=== PATIENT | female | born 1950 | race Caucasian/White ===

== ENCOUNTER 2017-01-13 13:21 | Outpatient (CLI) | payer OTHER ==
[2014-08-20 09:26] VITALS: BP 105/60
[2017-01-13 13:41] LABS: BASOPHILS % 0.5 (0.0-1.5); EOSINOPHILS % 2.1 % (0.0-6.8); MEAN CORPUSCULAR HEMOGLOBIN 30.1 pg (28.0-34.0); MEAN CORPUSCULAR VOLUME 85.8 fl (80.0-100.0); MONOCYTES % 6.6 % (0.0-11.0); NEUTROPHILS # 4.1 # k/uL (1.4-7.7)
[2017-01-13 14:07] LABS: eGFR (African) > 60; eGFR (Non-African) > 60
== END 2017-01-13 13:22 ==
LOC: LAB 13:21
PROVIDERS: ATTEND Nurse Practitioner Family
DX: Z51.81 Encounter for therapeutic drug level monitoring (principal); Z79.899 Other long term (current) drug therapy
CPT/HCPCS: 36415; 80053; 82306; 85025

== ENCOUNTER 2017-03-22 14:30 | Outpatient (CLI) | payer OTHER ==
[2014-08-20 09:26] VITALS: BP 105/60
[2017-03-22 16:15] LABS: eGFR (African) > 60; eGFR (Non-African) > 60
== END 2017-03-22 14:50 ==
LOC: LAB 14:30
PROVIDERS: ATTEND Internal Medicine
DX: M86.8X9 Other osteomyelitis, unspecified sites (principal)
CPT/HCPCS: 36415; 80048

== ENCOUNTER 2017-03-23 14:10 | Outpatient (CLI) | payer OTHER ==
[2014-08-20 09:26] VITALS: BP 105/60
[~2017-03-23 14:10] MED LIST: DENOSUMAB 60 MG/ML ML SQ ONE
[2017-03-24] MEDS ORDERED: DENOSUMAB 60 MG/ML ML SQ SCH (08:00)
== END 2017-03-23 14:15 | disposition home or self-care (01) ==
LOC: INF 14:10
PROVIDERS: ATTEND Internal Medicine
DX: M81.0 Age-related osteoporosis without current pathological fracture (principal)
CPT/HCPCS: 96372; J0897

== ENCOUNTER 2017-04-20 12:23 | Outpatient (CLI) | payer OTHER ==
[2014-08-20 09:26] VITALS: BP 105/60
--- NOTE | 2017-04-20 14:58 | Diagnostic Imaging Report ---
AUSTYN RICH [facility] [id number] [facility].[address] [address] Report Submission Date: Apr 20, 2017 1:48:52 PM CDT Patient Study Name: MARTIN MCCRACKEN Date: Apr 20, 2017 12:39:13 PM CDT Modality Type: US Gender: F Description: DPLX SCN XTRCRAN ART CMP OSIEL : 54 Institution: [facility] Physician: AUSTYN RICH Examination: Carotid artery ultrasound History: Bruit Comparison exams: None available Findings: Right carotid: Common carotid artery peak systolic velocity 8.9 cm/s; end diastolic velocity 20.6 cm/s. Internal carotid artery peak systolic velocity 82.3 cm/s; end diastolic velocity 30.8 cm/s. External carotid artery velocity to 82.2 cm/s. Vertebral artery velocity 44.6 cm/s Vertebral flow antegrade. Normal waveforms. No occlusive plaquing. Left carotid: Common carotid artery peak systolic velocity 72.1 cm/s; end diastolic velocity 22.3 cm/s. Internal carotid artery peak systolic velocity 83.3 cm/s; end diastolic velocity 29.3 cm/s. External carotid artery velocity to 79.2 cm/s. Vertebral artery velocity 42.6 cm/s Vertebral flow antegrade. Normal waveforms. No occlusive plaquing. Right ICA/CCA Ratio: 1.0 Left ICA/CCA Ratio 12 Impression: Carotids ratios not elevated. No restriction to hemodynamic flow. Electronically signed on Apr 20, 2017 1:48:52 PM CDT by: Torrey BALDERRAMA
== END 2017-04-20 12:24 ==
LOC: RAD 12:23
PROVIDERS: ATTEND Nurse Practitioner Family
DX: R09.89 Other specified symptoms and signs involving the circulatory and respiratory systems (principal); R01.1 Cardiac murmur, unspecified
CPT/HCPCS: 93880

== ENCOUNTER 2017-04-20 14:19 | Outpatient (CLI) | payer OTHER ==
[2014-08-20 09:26] VITALS: BP 105/60
== END 2017-04-20 14:20 ==
LOC: CARD 14:19
PROVIDERS: ATTEND Internal Medicine Cardiovascular Disease
DX: R01.1 Cardiac murmur, unspecified (principal)
CPT/HCPCS: G0463

== ENCOUNTER 2017-10-15 11:41 | Outpatient (CLI) | payer OTHER ==
[2014-08-20 09:26] VITALS: BP 105/60
--- NOTE | 2017-10-19 12:00 | OP Clinic Progress Note ---
REASON FOR VISIT: Johanny Vanegsa returns for follow up of osteoporosis. She is doing well. She has no complaints. She has had no falls. No new back pain. PAST MEDICAL HISTORY: 1. Hyperlipidemia. 2. Depression. 3. Reflux. 4. Hypertension. 5. Osteoporosis. PRESENT MEDICATIONS: Present medications were reviewed and she receives Prolia 60 mg every 6 months. REVIEW OF SYSTEMS: She has had no difficulties. She will have labs in a couple of days. She just saw her primary physician, Dr. Ramirez, and is up to date on all needs. PHYSICAL EXAMINATION: GENERAL: She looks well. VITAL SIGNS: Height: 5 feet 3 inches. Weight: 103 pounds. No pain. T: 97.4, R: 20, heart rate 77, BP: 130/70. HEENT: Unremarkable. LUNGS: Clear. No crackles or wheezing. HEART: Regular rhythm. ABDOMEN: Soft. VASCULAR: No edema or cyanosis. SPINAL EXAM: Mild kyphosis of the thoracic spine. No spinal or paraspinal tenderness. IMPRESSION: Osteoporosis. PLAN: Await her labs. Proceed with Prolia 60 mg subcutaneous, and I will see her back in 6 months. Thank you very much. cc: Dr. Mary BALDERRAMA
== END 2017-10-15 11:42 ==
LOC: RHEU 11:41
PROVIDERS: ATTEND Internal Medicine
DX: M81.0 Age-related osteoporosis without current pathological fracture (principal)
CPT/HCPCS: 99214; G0463

== ENCOUNTER 2017-10-19 13:44 | Outpatient (CLI) | payer OTHER ==
[2014-08-20 09:26] VITALS: BP 105/60
[2017-10-19] MEDS ORDERED: DENOSUMAB 60 MG/ML ML SQ ONE (14:00)
[2017-10-19] MEDS ORDERED: DENOSUMAB 60 MG/ML ML SQ SCH (15:00)
== END 2017-10-19 13:45 ==
LOC: INF 13:44
PROVIDERS: ATTEND Internal Medicine
DX: M81.0 Age-related osteoporosis without current pathological fracture (principal)
CPT/HCPCS: 96372; J0897

== ENCOUNTER → 2017-10-29 | Outpatient (CLI) | payer OTHER ==
[2014-08-20 09:26] VITALS: BP 105/60
[2017-10-29 09:45] LABS: BASOPHILS % 0.3 (0.0-1.5); EOSINOPHILS % 1.6 % (0.0-6.8); MEAN CORPUSCULAR HEMOGLOBIN 31.6 pg (28.0-34.0); MEAN CORPUSCULAR VOLUME 91.6 fl (80.0-100.0); MONOCYTES % 5.2 % (0.0-11.0); NEUTROPHILS # 8.9 # k/uL (1.4-7.7)
[2017-10-29 10:06] LABS: eGFR (African) > 60; eGFR (Non-African) > 60
== END ==
LOC: LAB 09:13
PROVIDERS: ATTEND Nurse Practitioner Psychiatric/Mental Health
DX: Z51.81 Encounter for therapeutic drug level monitoring (principal); Z79.899 Other long term (current) drug therapy
CPT/HCPCS: 36415; 80053; 82306; 85025

== ENCOUNTER 2018-03-18 14:06 | Outpatient (CLI) | payer OTHER ==
[2014-08-20 09:26] VITALS: BP 105/60
--- NOTE | 2018-03-24 09:07 | OP Clinic Progress Note ---
REASON FOR VISIT: Johanny Vanegas returns for follow up of osteoporosis. She has had a good 6 months. No falls. No back pain. No new fractures and she denies any new medical problems. PAST MEDICAL HISTORY: 1. Hyperlipidemia. 2. Depression. 3. Reflux. 4. Hypertension. 5. Osteoporosis. PRESENT MEDICATIONS: Present medications are reviewed and are unchanged. REVIEW OF SYSTEMS: As above. PHYSICAL EXAMINATION: GENERAL: She looks well. VITAL SIGNS: HEIGHT: 5 feet 3 inches. Weight: 100 1/2 pounds. T: 98.2, R : 20, heart rate 80, BP: 120/64. HEENT: Unremarkable. LUNGS: Clear. HEART: Regular rate and rhythm. ABDOMEN: Soft. VASCULAR: No edema or cyanosis. SPINAL: She has no spinal tenderness or pain to percussion. Mild kyphosis but unchanged. JOINTS: Minimal changes of OA. IMPRESSION: Osteoporosis. PLAN: We will schedule the patient for Prolia 60 mg. Thank you very much. Best regards, cc: Dr. Mary BALDERRAMA
== END 2018-03-18 15:01 ==
LOC: RHEU 14:06
PROVIDERS: ATTEND Internal Medicine
DX: M81.0 Age-related osteoporosis without current pathological fracture (principal)
CPT/HCPCS: 99213; G0463

== ENCOUNTER 2018-04-19 14:05 | Outpatient (CLI) | payer OTHER ==
[2014-08-20 09:26] VITALS: BP 105/60
[~2018-04-19 14:05] MED LIST changes: -DENOSUMAB 60 MG/ML ML SQ ONE; +DENOSUMAB 60 MG/ML SYRINGE SQ ONE
[2018-04-19] MEDS ORDERED: DENOSUMAB 60 MG/ML SYRINGE SQ SCH (15:00)
== END 2018-04-19 14:30 ==
LOC: INF 14:05
PROVIDERS: ATTEND Internal Medicine
DX: M81.0 Age-related osteoporosis without current pathological fracture (principal)
CPT/HCPCS: 96372; J0897

== ENCOUNTER 2018-06-17 09:03 | Outpatient (CLI) | payer OTHER ==
[2014-08-20 09:26] VITALS: BP 105/60
[2018-06-17 10:36] LABS: eGFR (Non-African) > 60
[2018-06-17 17:11] LABS: BASO % 0.2 % (0.0-1.5); EOS % 1.2 % (0.0-6.8); LYMPH ABS # 1.25 thou/uL (0.60-4.00); MCH. 30.4 pg (28.0-34.0); MCV 87.9 fL (80.0-100.0); MONOCYTE % 8.4 % (0.0-11.0); MONOCYTE ABS # 0.65 thou/uL (0.00-0.90); PLATELET COUNT 359 thou/uL (130-400)
== END 2018-06-17 09:05 ==
LOC: LAB 09:03
PROVIDERS: ATTEND Family Medicine
DX: Z79.899 Other long term (current) drug therapy (principal); M81.0 Age-related osteoporosis without current pathological fracture
CPT/HCPCS: 36415; 80053; 82306; 85025

== ENCOUNTER 2018-09-23 13:00 | Outpatient (CLI) | payer OTHER ==
[2014-08-20 09:26] VITALS: BP 105/60
--- NOTE | 2018-10-05 11:33 | OP Clinic Progress Note ---
REASON FOR VISIT: Johanny Vanegas returns for follow up of osteoporosis. She is doing well. No new medical problems. No falls. No new back pain. Past medical history remains unchanged. REVIEW OF SYSTEMS: No fevers, chills, sweats, chest pain, or shortness of breath. PHYSICAL EXAMINATION: VITAL SIGNS: BP: 129/70, P: 77, R: 20, T: 98.6. BACK: She has a little kyphosis. No spinal or paraspinal tenderness. PERIPHERAL JOINTS: Changes of OA. No synovitis. IMPRESSION: Osteoporosis. PLAN: 1. We will proceed with Prolia. 2. This is my last clinic day here at [facility] and I have asked that she discuss with her primary care physician, Dr. Mary Ramirez, continuing Prolia, since I will not be seeing her any longer. Thank you very much. Best regards, cc: Dr. Mary BALDERRAMA
== END 2018-09-23 13:10 ==
LOC: RHEU 13:00
PROVIDERS: ATTEND Internal Medicine
DX: M81.0 Age-related osteoporosis without current pathological fracture (principal)
CPT/HCPCS: 99212; G0463

== ENCOUNTER 2018-10-26 11:57 | Outpatient (CLI) | payer MEDICARE, OTHER ==
[2014-08-20 09:26] VITALS: BP 105/60
[2018-10-26] MEDS ORDERED: DENOSUMAB (NF) 60 MG/ML SYRINGE SQ ONE (18:00)
== END 2018-10-26 12:22 ==
LOC: INF 11:57
PROVIDERS: ATTEND Internal Medicine
DX: M81.0 Age-related osteoporosis without current pathological fracture (principal)
CPT/HCPCS: 96372; J0897

== ENCOUNTER 2019-04-20 09:14 | Outpatient (CLI) | payer MEDICARE, OTHER ==
[2014-08-20 09:26] VITALS: BP 105/60
--- NOTE | 2019-04-20 12:28 | Diagnostic Imaging Report ---
AUSTYN RICH [facility] [address] [facility] [address] [address] Report Submission Date: Apr 20, 2019 10:17:31 AM CDT Patient Study Name: MARTIN MCCRACKEN Date: Apr 20, 2019 12:00:00 AM CDT Modality Type: DEXA\OT Gender: F Description: DEXA : 54 Institution: [facility] Physician: AUSTYN RICH Exam: DEXA bone density study. History: Screening. The bone mineral density in the lumbar spine from L1-L4 is 0.656 grams/centimeters sq. This corresponds to a T-score -4.4. This is considered ext severely osteoporotic and carries with it a high risk for fracture. The mean bone mineral density in the hips is 0.686 grams/centimeters sq which corresponds to a T-score -2.6 which is considered osteoporotic and carries with it a moderate risk for fracture. Impression: Osteoporosis identified in the lumbar spine and hips however considered extreme in the lumbar spine. Electronically signed on Apr 20, 2019 10:17:31 AM CDT by: Yossi BALDERRAMA
== END 2019-04-20 09:16 ==
LOC: RAD 09:14
PROVIDERS: ATTEND Family Medicine
DX: M81.0 Age-related osteoporosis without current pathological fracture (principal)
CPT/HCPCS: 77080

== ENCOUNTER 2019-04-26 12:02 | Outpatient (CLI) | payer OTHER ==
[2014-08-20 09:26] VITALS: BP 105/60
[2019-04-26] MEDS ORDERED: DENOSUMAB (NF) 60 MG/ML SYRINGE SQ ONE (13:00)
== END 2019-04-26 12:31 | disposition home or self-care (01) ==
LOC: INF 12:02
PROVIDERS: ATTEND Internal Medicine
DX: M81.0 Age-related osteoporosis without current pathological fracture (principal)
CPT/HCPCS: J0897

== ENCOUNTER 2019-05-08 08:54 | Day surgery (SDC) | payer MEDICARE, OTHER ==
[2014-08-20 09:26] VITALS: BP 105/60
--- NOTE | 2019-05-10 13:19 | GI Report ---
DATE OF PROCEDURE: 05/08/2019 REFERRING PHYSICIAN: Dr. Ramirez. PROCEDURE PERFORMED: Colonoscopy with snare polypectomy. SURGEON: Annalee Grant M.D., [place] INDICATION FOR PROCEDURE: The patient is a 68-year-old woman who had adenomatous polyp removal over 5 years ago. She does have a learning disability. Her power of insurance defense attorney signed consent. PROCEDURE MEDICATION: Propofol, as per Anesthesia. DESCRIPTION OF PROCEDURE: The Olympus video colonoscope was advanced into the rectum. It was slowly advanced to the cecum. The appendiceal orifice and terminal ileum looked normal. On slow withdrawal in the cecum and ascending colon looked normal. At the hepatic flexure the patient has a 3 mm flat polyp removed with a cold snare and submitted to pathology. The remaining part of the transverse colon appeared normal. Descending colon and sigmoid: Again, some redundancy but no obvious intraluminal lesions were noted. Retroflexion of in the rectum was normal. The patient tolerated the procedure well. She had 1 slight sinus pause that lasted about 10 seconds. Her pressure remained normal. FINDINGS: Polyp removed from the hepatic flexure. RECOMMENDATIONS: 1. Increase fiber in the diet. 2. If the polyp is adenomatous, would consider relooking again in 5 years. If it was hyperplastic the patient could probably wait 10 years to have her colon evaluated. ANNALEE GRANT M.D., F.A.CKatyP. [place] Job#: [id number] Cc: Dr. Ramirez [facility] HE[facility] NETWORKGarett
== END 2019-05-08 11:12 | disposition home or self-care (01) ==
LOC: OPSURG 08:54
PROVIDERS: ATTEND Internal Medicine Gastroenterology
DX: Z12.11 Encounter for screening for malignant neoplasm of colon (principal); D12.3 Benign neoplasm of transverse colon; K63.89 Other specified diseases of intestine; Z86.010 Personal history of colon polyps
CPT/HCPCS: 45385